=== PATIENT | female | born 1995 ===

== ENCOUNTER 2021-06-16 11:25 | Emergency (ER) | payer OTHER ==
--- NOTE | 2021-06-16 11:59 | EDM.PDOC ---
ED HPI GENERAL MEDICAL PROBLEM - General Chief Complaint: General Stated Complaint: SUPRESSED WHIT LOSS OF WIEGHT Time Seen by Provider: 06/16/21 11:32 - History of Present Illness INITIAL COMMENTS - FREE TEXT/NARRATIVE: Patient is a 26-year-old female she has a history of autoimmune hepatitis on CellCept and prednisone history of depression as well who is presenting with some unintentional weight loss approximately 15 pounds over the last few months as well as 2 to 3 weeks of worsening easy bruising and fatigue. She also notes that 2 to 3 weeks ago she developed a tenderness in the right upper chest. No other chest pain no shortness of breath no nausea vomiting or diarrhea. She notes that prior to starting on Prozac she had diminished appetite related her depressive symptoms. However, she states that that has improved and she is now eating well but seems to continue to lose weight. Patient states that in February she had her labs checked and her LFTs were normal. She has a provider that she sees here in [facility]. She follows with material inspector in [place] who she sees yearly. Her liver function has been quite stable her next appointment with hepatology is scheduled for October. - Related Data Allergies Allergy/AdvReac Type Severity Reaction Status Date / Time azathioprine Allergy Other Verified 06/16/21 11:43 ibuprofen Allergy Other Verified 06/16/21 11:43 montelukast [From Singulair] Allergy Other Verified 06/16/21 11:43 Home Meds: Home Meds Omeprazole Magnesium [Prilosec Otc] 20 mg PO DAILY 06/16/21 [History] Venlafaxine [Effexor] 75 mg PO DAILY 06/16/21 [History] mycophenolate mofetiL [Cellcept] 1,000 mg PO BID 06/16/21 [History] predniSONE 5 mg PO DAILY 06/16/21 [History] Past Medical History Psychiatric History: Reports: Anxiety, Depression Immunologic History: Reports: Immunosuppression Other Immunologic History: Autoimmune Hepatitis - Past Surgical History HEENT Surgical History: Reports: Tonsillectomy Social & Family History - Tobacco Use Tobacco Use Status *Q: Never Tobacco User - Recreational Drug Use Recreational Drug Use: No ED ROS GENERAL - Review of Systems Review Of Systems: See Below Free Text/Narrative/Comment: General: Per HPI Skin: Per HPI Eyes: No vision problems. ENT: No sore throat. Neck: No neck stiffness. Respiratory: No shortness of breath. Cardiac: No chest pain. Gastrointestinal: No nausea, vomiting or abdominal pain. Urinary: No dysuria. Musculoskeletal: No myalgias/arthralgias. Neurologic: No headache. ED EXAM, GENERAL - Physical Exam Exam: See Below Free Text/Narrative:: General Appearance: No acute distress, appears comfortable Skin: Some scattered small contusions particularly on the lower extremities HEENT: Normocephalic/atraumatic, sclera anicteric, mucous membranes moist Neck: Normal range of motion Chest and Lungs: Bilateral breath sounds, clear to auscultation, tenderness in the mid clavicular line on the right anterior chest at the level of the third rib no palpable mass Cardiovascular: Regular rate and rhythm, no murmur Abdomen: Soft, non-tender Back: Normal Musculoskeletal: No edema or tenderness Neurologic: Awake, alert, no obvious deficits, moving all extremities Psychiatric: Appropriate, cooperative Course - Vital Signs Last Recorded V/S: Last Vital Signs Temp 98.1 F 06/16/21 13:23 Pulse 82 06/16/21 13:23 Resp 18 06/16/21 13:23 BP 118/77 06/16/21 13:23 Pulse Ox 98 06/16/21 13:23 - Orders/Labs/Meds Labs: Laboratory Tests 06/16/21 06/16/21 06/16/21 Range/Units 12:05 12:05 12:05 WBC 4.20 (4.0-11.0) K/uL RBC 5.25 (4.30-5.90) M/uL Hgb 15.5 (12.0-16.0) g/dL Hct 45.0 (36.0-46.0) % MCV 85.7 (80.0-98.0) fL MCH 29.5 (27.0-32.0) pg MCHC 34.4 (31.0-37.0) g/dL RDW Std Deviation 41.8 (28.0-62.0) fl RDW Coeff of Bernardo 14 (11.0-15.0) % Plt Count 160 (150-400) K/uL MPV 9.90 (7.40-12.00) fL Neut % (Auto) 65.2 (48.0-80.0) % Lymph % (Auto) 26.7 (16.0-40.0) % [place] % (Auto) 7.6 (0.0-15.0) % Eos % (Auto) 0.5 (0.0-7.0) % Baso % (Auto) 0.0 (0.0-1.5) % Neut # (Auto) 2.7 (1.4-5.7) K/uL Lymph # (Auto) 1.1 (0.6-2.4) K/uL [place] # (Auto) 0.3 (0.0-0.8) K/uL Eos # (Auto) 0.0 (0.0-0.7) K/uL Baso # (Auto) 0.0 (0.0-0.1) K/uL Nucleated RBC % 0.0 /100WBC Nucleated RBCs # 0 K/uL INR 1.05 APTT 24.9 (18.6-31.3) SEC Sodium 140 (136-145) mmol/L Potassium 3.6 (3.5-5.1) mmol/L Chloride 106 (98-107) mmol/L Carbon Dioxide 26.2 (21.0-32.0) mmol/L BUN 14 (7.0-18.0) mg/dL Creatinine 1.1 H (0.6-1.0) mg/dL Est Cr Clr Drug Dosing 64.94 mL/min Estimated GFR (MDRD) > 60.0 ml/min Glucose 120 H (74-106) mg/dL Calcium 9.0 (8.5-10.1) mg/dL Total Bilirubin 1.0 (0.2-1.0) mg/dL AST 23 (15-37) IU/L ALT 52 (14-63) IU/L Alkaline Phosphatase 65 (46-116) U/L Total Protein 6.9 (6.4-8.2) g/dL Albumin 4.1 (3.4-5.0) g/dL Globulin 2.8 (2.6-4.0) g/dL Albumin/Globulin Ratio 1.5 (0.9-1.6) Free T4 1.10 (0.76-1.46) ng/dL TSH, Ultra Sensitive 0.31 L (0.36-3.74) uIU/mL Departure - Departure Time of Disposition: 14:02 Disposition: Home, Self-Care 01 Condition: Good Clinical Impression: Easy bruising - Discharge Information *PRESCRIPTION DRUG MONITORING PROGRAM REVIEWED*: Not Applicable *COPY OF PRESCRIPTION DRUG MONITORING REPORT IN PATIENT MELANIE: Not Applicable Referrals: Traci Horta PA [Primary Care Provider] - Forms: ED Department Discharge Additional Instructions: You labs today showed normal liver function. Your blood cell counts showed normal white and red blood cells and a normal platelet number. However, additional testing will likely be needed to determine the cause of your easy bruising and other symptoms. Please follow-up with your primary care provider's office. They will be able to aid in additional testing and any specialty referrals that my be necessary. The following information is given to patients seen in the emergency department who are being discharged to home. This information is to outline your options for follow-up care. We provide all patients seen in our emergency department with a follow-up referral. The need for follow-up, as well as the timing and circumstances, are variable depending upon the specifics of your emergency department visit. If you don't have a primary care physician on staff, we will provide you with a referral. We always advise you to contact your personal physician following an emergency department visit to inform them of the circumstance of the visit and for follow-up with them and/or the need for any referrals to a consulting specialist. The emergency department will also refer you to a specialist when appropriate. This referral assures that you have the opportunity for follow-up care with a specialist. All of these measure are taken in an effort to provide you with optimal care, which includes your follow-up. Under all circumstances we always encourage you to contact your private physician who remains a resource for coordinating your care. When calling for follow-up care, please make the office aware that this follow-up is from your recent emergency room visit. If for any reason you are refused follow-up, please contact the [facility] Emergency Department at and asked to speak to the emergency department charge nurse. Sepsis Event Note (ED) - Evaluation Sepsis Screening Result: No Definite Risk - Focused Exam Vital Signs: Vital Signs Temp Pulse Resp BP Pulse Ox 06/16/21 13:23 98.1 F 82 18 118/77 98 06/16/21 11:39 97 F 94 16 124/85 96 - Assessment/Plan Assessment:: 26-year-old female presenting with systemic symptoms noted above. Worsening liver function is a consideration and CBC PT/INR and PTT are pending. New renal insufficiency or electrolyte abnormality considered possible but felt less likely thyroid dysfunction also possible and TSH with reflex free T4 pending. Lymphoma is a consideration as well though less likely. CBC with differential and chest x-ray pending. Causes found during this assessment today certainly continue to follow-up as an outpatient with additional testing may be indicated. 1400: Labs and CXR are normal. Pt's VS remain stable she will f/u with her PCP for further testing and referral as felt indicated by them.
[2021-06-16 12:43] LABS: BLOOD UREA NITROGEN,BUN 14 mg/dL (7.0-18.0); CARBON DIOXIDE,CO2 26.2 mmol/L (21.0-32.0); CHLORIDE,CL 106 mmol/L (98-107); GLUCOSE RANDOM 120 mg/dL (74-106); POTASSIUM,K 3.6 mmol/L (3.5-5.1); SODIUM,NA 140 mmol/L (136-145)
--- NOTE | 2021-06-16 13:39 | CR ---
For Patients: As a result of the Cures Act, medical imaging exams and procedure reports are released immediately into your electronic medical record. You may view this report before your referring provider. If you have questions, please contact your health care provider. INDICATION: Chest pain. TECHNIQUE: PA and lateral views of the chest. COMPARISON: None. FINDINGS: Normal cardiac, mediastinal and hilar contours. Normal pulmonary vasculature. Lungs are clear. No pleural fluid or pneumothorax. No acute bony abnormality is identified. IMPRESSION: No radiographic signs of acute cardiopulmonary disease. Dictated by Praveen De Leon MD @ 06/16/2021 1:36:50 PM Dictated by: Praveen De Leon MD @ 06/16/2021 13:37:22 (Electronically Signed)
== END 2021-06-16 14:07 | disposition home or self-care (01) ==
LOC: MW.ED 11:25
DX: M79.81 Nontraumatic hematoma of soft tissue (principal); Z79.899 Other long term (current) drug therapy; Z88.8 Allergy status to other drugs, medicaments and biological substances
CPT/HCPCS: 36415; 71046; 71046-26; 80053; 84439; 84443; 85025; 85610; 85730; 99284-25